=== PATIENT | female | born 1990 | race Caucasian/White ===

== ENCOUNTER 2023-05-19 18:23 | Emergency (ER) | payer OTHER ==
[~2023-05-19] VITALS: Ht 167.6 cm; Wt 74.8 kg
[2023-05-19] MEDS ORDERED: IV NORMAL SALINE 1000 ML BAG IV ONE (19:30)
[2023-05-19] MEDS ORDERED: SWABABLE VALVE TRANSFER SET EA MC ONE (20:00)
[2023-05-19] MEDS ORDERED: IOHEXOL 350 100 ML INFUS..BTL ONE (20:00)
[2023-05-19] MEDS ORDERED: IV NORMAL SALINE 250 ML IV ONE (20:00)
[2023-05-19 20:05] LABS: BASOPHILS % (AUTO) 0.5 % (0.0-2.0); EOSINOPHILS # (AUTO) 0.4 K/uL (0.0-0.7); EOSINOPHILS % (AUTO) 5.1 % (0.0-7.0); HEMATOCRIT 38.6 % (31.2-41.9); HEMOGLOBIN 13.4 g/dL (10.9-14.3); LYMPHOCYTES # (AUTO) 2.1 K/uL (0.8-4.8); LYMPHOCYTES % (AUTO) 25.5 % (20.5-51.5); MEAN CORPUSCULAR HEMOGLOBIN 33.5 uug (24.7-32.8); MEAN CORPUSCULAR HGB CONC 35 g/dL (32.3-35.6); MEAN CORPUSCULAR VOLUME 96.5 fL (75.5-95.3); MONOCYTES # (AUTO) 0.6 K/uL (0.1-1.30); MONOCYTES % (AUTO) 7.3 % (0.0-11.0); NEUTROPHILS # (AUTO) 5.1 K/uL (1.8-8.9); NEUTROPHILS % (AUTO) 61.6 % (38.5-71.5); PLATELET COUNT (AUTO) 190 K/uL (179-408); WHITE BLOOD COUNT (AUTO) 8.3 K/uL (3.8-11.8)
[2023-05-19 20:10] LABS: DIFFERENTIAL COMMENT 1
[2023-05-19 20:58] LABS: ALANINE AMINOTRANSFERASE 22 U/L (14-59); ALBUMIN 3.8 g/dL (3.4-5.0); ALKALINE PHOSPHATASE 64 U/L (50-136); ASPARTATE AMINOTRANSFERASE < 5 U/L (15-37); BILIRUBIN,DIRECT 0.1 mg/dL (0.0-0.2); BILIRUBIN,TOTAL 0.1 mg/dL (0.2-1.0); CALCIUM 8.4 mg/dL (8.5-10.1); CARBON DIOXIDE 26 mmol/L (21-32); CREATININE 0.8 mg/dL (0.6-1.3); GLUCOSE 110 mg/dL (74-106); TOTAL PROTEIN, SERUM 7.5 g/dL (6.4-8.2); UREA NITROGEN, BLOOD 10 mg/dL (7-18)
[2023-05-19 21:02] LABS: CHLORIDE 105 mmol/L (98-107); POTASSIUM 3.7 mmol/L (3.5-5.1); SODIUM SERUM 142 mmol/L (136-145)
[2023-05-19 22:14] VITALS: BP 126/77; TEMP 98; O2SAT 98
== END 2023-05-19 22:14 | disposition home or self-care (01) ==
LOC: ER 18:27
DX: G43.109 Migraine with aura, not intractable, without status migrainosus (principal); E03.9 Hypothyroidism, unspecified
CPT/HCPCS: 99285; 70496; 96360; 96361; 80076; 80048; 85025; 85730; 84484; 70498; 70450; Q9967; J7040; 36415; A4663

== ENCOUNTER 2025-02-28 19:10 | Emergency (ER) | payer MEDICAID ==
[~2025-02-28] VITALS: Ht 167.6 cm; Wt 69.9 kg
[2025-02-28] MEDS ORDERED: IBUP-1955 PO (19:39)
[2025-02-28 19:50] VITALS: BP 121/86; TEMP 97.1; O2SAT 99
== END 2025-02-28 19:45 | disposition home or self-care (01) ==
LOC: ER 19:14
DX: M26.629 Arthralgia of temporomandibular joint, unspecified side (principal); E03.9 Hypothyroidism, unspecified; F19.10 Other psychoactive substance abuse, uncomplicated; Z91.030 Bee allergy status
CPT/HCPCS: A4606; A4663